=== PATIENT | female | born 1980 | race American Indian/Alaskan Native ===

== ENCOUNTER 2019-01-05 07:55 | Emergency (ER) | payer MEDICARE, OTHER ==
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
[2019-01-05] MEDS ORDERED: PERCOCET 5/325 PO ONE (09:51)
[2019-01-05 10:10] VITALS: BP 132/77
== END 2019-01-05 10:00 | disposition home or self-care (01) ==
LOC: ED 07:55
DX: M54.2 Cervicalgia (principal); G89.29 Other chronic pain; F31.9 Bipolar disorder, unspecified; F20.9 Schizophrenia, unspecified; F17.200 Nicotine dependence, unspecified, uncomplicated; F12.10 Cannabis abuse, uncomplicated; Z88.0 Allergy status to penicillin; Z88.5 Allergy status to narcotic agent
CPT/HCPCS: 99282